=== PATIENT | male | born 1980 | race Asian ===

== ENCOUNTER 2024-02-23 19:08 | Emergency (ER) | payer BC, OTHER ==
[2024-02-23 19:15] VITALS: BP 130/66; PULSE 78; RESP 16; TEMP 98.7; BMI 24.3
[2024-02-23] MEDS ORDERED: KETOROLAC TROMETHAMINE 30 MG/1 ML VIAL ONE (20:10)
[2024-02-23] MEDS ORDERED: ACETAMINOPHEN INJECTION 100 ML ONE (20:10)
[2024-02-23] MEDS: KETOROLAC TROMETHAMINE 30 MG/1 ML VIAL IVPUSH ONE (20:28)
[2024-02-23] MEDS: ACETAMINOPHEN 1000 MG/100 ML BAG IVPB ONE (20:28)
[2024-02-23 20:30] LABS: HEMATOCRIT 43.1 % (35.4-49); HEMOGLOBIN 14.5 GM/dL (11.7-16.9); MCH 28.3 pg (25.7-33.7); MCHC 33.8 g/dl (32.0-35.9); MEAN CELL VOLUME 83.8 fl (80-96); MEAN PLT VOLUME 7.7 fl (7.5-11.1); PLATELET COUNT 193 10^3/uL (134-434); RBC 5.14 M/mm3 (4.00-5.60); RDW 14.2 % (11.9-15.9); WHITE BLOOD COUNT 7.6 K/mm3 (4.0-10.0)
[2024-02-23 21:06] LABS: CHLORIDE 108 mmol/L (98-107); POTASSIUM 4.2 mmol/L (3.5-5.1); SODIUM 140 mmol/L (136-145)
[2024-02-23 21:07] LABS: EPI CELLS 2 /uL (0-25.1); HYALINE CASTS 0 /uL (0-3.1); URINE APPEARANCE CLEAR; URINE BACTERIA 4 /uL (0-1359); URINE BILIRUBIN NEGATIVE (NEGATIVE); URINE COLOR YELLOW; URINE GLUCOSE (UA) NEGATIVE (NEGATIVE); URINE KETONE NEGATIVE (NEGATIVE); URINE LEUK ESTERASE NEGATIVE (NEGATIVE); URINE NITRITE NEGATIVE (NEGATIVE); URINE PROTEIN NEGATIVE (NEGATIVE); URINE RBC 65 /uL (0-23.9); URINE UROBILINOGEN 0.2 mg/dL (0.2-1.0); URINE WBC 3 /uL (0-25.8)
[2024-02-23 21:08] LABS: ALBUMIN 3.8 g/dl (3.4-5.0); ANION GAP 5 mmol/L (4-13); CALCIUM 9.2 mg/dL (8.5-10.1); CO2 27 mmol/L (21-32)
[2024-02-23 21:09] LABS: BLOOD UREA NITROGEN 17.6 mg/dL (7-18); GLUCOSE,RANDOM 98 mg/dL (74-106)
[2024-02-23 21:12] LABS: CREATININE 0.9 mg/dL (0.55-1.3); SGOT/AST 20 U/L (15-37); SGPT/ALT 24 U/L (13-61)
[2024-02-23 21:13] LABS: BILIRUBIN,TOTAL 0.2 mg/dL (0.2-1); TOT PROT 6.5 g/dl (6.4-8.2)
[2024-02-23 21:14] LABS: ALK PHOS 91 U/L (45-117); INR 0.97 (0.83-1.09); PROTHROMBIN TIME (PATIENT) 11.2 SEC (9.7-13.0)
[2024-02-23 21:48] LABS: ERYTHROCYTE SEDIMENTATION RATE 2 mm/hr (0-10)
== END 2024-02-23 21:26 | disposition home or self-care (01) ==
LOC: JER 19:08 → JERFT 19:08
PROC: 3E033NZ Introduction of Analgesics, Hypnotics, Sedatives into Peripheral Vein, Percutaneous Approach (ICD-10-PCS; principal; 2024-02-23)
PROC: 3E0333Z Introduction of Anti-inflammatory into Peripheral Vein, Percutaneous Approach (ICD-10-PCS; 2024-02-23)
DX: M25.551 Pain in right hip (principal)
CPT/HCPCS: 36415; 72170-TC-FY; 73502-TC-RT-FY; 80053; 81003; 85027; 85610; 85651; 86140; 99284-25; J0131